=== PATIENT | female | born 1945 | race Two or more races ===

== ENCOUNTER 2023-01-10 21:43 | Inpatient (IN) | payer OTHER ==
[~2023-01-10] VITALS: Ht 172.7 cm; Wt 106.5 kg
[2023-01-10 22:00] VITALS: PULSE 63; RESP 20; O2SAT 98
[2023-01-10] MEDS ORDERED: MORPHINE SULFATE 4 MG/ML SYR/VIAL IV ONE (22:30)
[2023-01-10] MEDS ORDERED: ONDANSETRON HCL 4 MG/2 ML VIAL IV ONE (22:30)
[2023-01-10 22:58] LABS: Basophils # (auto) 0 10 ^3/uL (0-0.2); Basophils % (auto) 0.2 % (0.0-2.0); Eosinophils # (auto) 0 10 ^3/uL (0-0.8); Eosinophils % (auto) 0.1 % (0.0-7.0); Hematocrit 43.5 % (36.0-46.0); Hemoglobin 14.4 g/dL (12.2-16.2); Lymphocytes # (auto) 0.9 10 ^3/uL (0.4-5.4); Lymphocytes % (auto) 9.1 % (10.0-50.0); Mean Corpuscular Hemoglobin 29.8 pg (28.0-32.0); Mean Corpuscular Hgb Conc. 33.1 g/dL (32.0-36.0); Monocytes # (auto) 0.5 10 ^3/uL (0-1.3); Monocytes % (auto) 4.6 % (0.0-12.0); Neutrophils # (auto) 8.8 10 ^3/uL (1.6-8.6); Nucleated Red Blood Cells % 0.1 %; Red Blood Cells 4.84 10^6/uL (4.0-5.20); Red Cell Distribution Width 14.5 % (11.8-14.3); White Blood Cell 10.2 10^3/uL (4.4-10.8)
[2023-01-10 23:11] LABS: Alanine Aminotransferase 17 U/L (7-40); Albumin 3.7 g/dL (3.2-4.8); Alkaline Phosphatase 73 U/L (46-116); Anion Gap 11 (5-15); Aspartate Aminotransferase 34 U/L (13-40); BUN/Creatinine Ratio 11.5 (10.0-20.0); Blood Urea Nitrogen 15 mg/dL (9-23); Calcium 9.9 mg/dL (8.7-10.4); Carbon Dioxide 24 mmol/L (20-30); Chloride 101 mmol/L (98-107); Glucose 326 mg/dL (74-106); Lipase 53 U/L (12-53); Magnesium 1.7 mg/dL (1.6-2.6); Potassium 4.1 mmol/L (3.5-5.1); Sodium 136 mmol/L (136-145)
[2023-01-10 23:12] LABS: Bilirubin, Total 0.6 mg/dL (0.2-1.0); INR 1.05 (0.9-1.15); Partial Thromboplastin Time < 20.0 SEC (24.5-34.5); Total Protein 7.8 g/dL (5.7-8.2)
[2023-01-10] MEDS ORDERED: fentaNYL CITRATE 100 MCG/2 ML VL IV ONE (23:15)
[2023-01-10 23:55] LABS: Lactic Acid w/Reflex 3.7 mmol/L (0.4-2.0)
[2023-01-11] MEDS ORDERED: fentaNYL CITRATE 100 MCG/2 ML VL IV ONE (00:45)
[2023-01-11] MEDS ORDERED: ZOFR4T PO (01:42)
[2023-01-11] MEDS ORDERED: diphenhdrAMINE HCL 50 MG/1 ML VL IV ONE (01:45)
[2023-01-11] MEDS ORDERED: DEXTROSE (50%) 50ML SYRG IV PRN ×2 (01:45→14:30)
[2023-01-11] MEDS ORDERED: hydrALAZINE HCL 20 MG/ML VL IV PRN (01:45)
[2023-01-11] MEDS ORDERED: HYDROcodone-ACET 5/325MG TAB PO PRN (01:45)
[2023-01-11] MEDS ORDERED: SODIUM CHLORIDE 0.9% 1,000 ML IV ONE (01:45)
[2023-01-11] MEDS ORDERED: METOCLOPRAMIDE HCL 5MG/ml INJ 2ml VIAL IV ONE (01:45)
[2023-01-11] MEDS ORDERED: ACETAMINOPHEN 325 MG TAB PO PRN (01:45)
[2023-01-11] MEDS ORDERED: SODIUM CHLORIDE 0.9% 500 ML IV ONE (01:45)
[2023-01-11] MEDS ORDERED: LACTATED RINGER'S 2,000 ML IV ONE (01:45)
[2023-01-11] MEDS ORDERED: HYDROmorphone HCL 2 MG/ML VL/or syr IV ONE ×2 (01:45→05:30)
[2023-01-11] MEDS ORDERED: MORPHINE SULFATE INJ 2 MG/ml SYRG IV PRN ×3 (01:45→14:30)
[2023-01-11 03:49] LABS: Lactic Acid w/Reflex 4.6 mmol/L (0.4-2.0)
[2023-01-11] MEDS ORDERED: IOHEXOL 300 MG/ML 100ML BOTTLE IJ ONE (04:49)
[2023-01-11] MEDS ORDERED: hydrALAZINE HCL 20 MG/ML VL IV ONE (05:00)
[2023-01-11] MEDS ORDERED: NITROGLYCERIN 0.4 MG SL TAB SL PRN (05:30)
[2023-01-11 06:42] LABS: Basophils # (auto) 0 10 ^3/uL (0-0.2); Basophils % (auto) 0.2 % (0.0-2.0); Eosinophils # (auto) 0 10 ^3/uL (0-0.8); Hematocrit 42.5 % (36.0-46.0); Hemoglobin 13.9 g/dL (12.2-16.2); Lymphocytes # (auto) 0.7 10 ^3/uL (0.4-5.4); Lymphocytes % (auto) 4.3 % (10.0-50.0); Mean Corpuscular Hemoglobin 29.9 pg (28.0-32.0); Mean Corpuscular Hgb Conc. 32.8 g/dL (32.0-36.0); Mean Corpuscular Volume 91.3 fL (80.0-100.0); Monocytes # (auto) 0.8 10 ^3/uL (0-1.3); Monocytes % (auto) 5.1 % (0.0-12.0); Neutrophils # (auto) 13.8 10 ^3/uL (1.6-8.6); Neutrophils % (auto) 90.4 % (37.0-80.0); Nucleated Red Blood Cells % 0.2 %; Red Blood Cells 4.66 10^6/uL (4.0-5.20); Red Cell Distribution Width 14.3 % (11.8-14.3); White Blood Cell 15.3 10^3/uL (4.4-10.8)
[2023-01-11 07:00] LABS: Alanine Aminotransferase 19 U/L (7-40); Albumin 3.7 g/dL (3.2-4.8); Alkaline Phosphatase 66 U/L (46-116); Anion Gap 13 (5-15); Aspartate Aminotransferase 34 U/L (13-40); BUN/Creatinine Ratio 11.3 (10.0-20.0); Bilirubin, Total 0.5 mg/dL (0.2-1.0); Blood Urea Nitrogen 13 mg/dL (9-23); Calcium 9.3 mg/dL (8.5-10.1); Carbon Dioxide 20 mmol/L (20-30); Chloride 103 mmol/L (98-107); Glucose 338 mg/dL (74-106); Lactic Acid w/Reflex 5.6 mmol/L (0.4-2.0); Potassium 3.9 mmol/L (3.5-5.1); Sodium 136 mmol/L (136-145); Total Protein 7.6 g/dL (5.7-8.2)
[2023-01-11] MEDS: ACCU-CHEK COMFORT CURVE STRIP VI SCH ×4 (07:05→22:00)
[2023-01-11] MEDS: InsuLIN REG 1unit/0.01ml Soln (100units/ml) SC SCH ×4 (07:05→22:33)
[2023-01-11 07:30] VITALS: PULSE 102; RESP 20; O2SAT 100
[2023-01-11] MEDS ORDERED: FAMOTIDINE (10MG/ML) 2ML VL IV SCH (10:00)
[2023-01-11] MEDS ORDERED: PANTOPRAZOLE 40 MG/10 ML VIAL INJ IV ONE (12:00)
[2023-01-11] MEDS: SODIUM CHLORIDE 0.9% 1,000 ML IV SCH ×2 (12:28→22:00)
[2023-01-11] MEDS ORDERED: levoFLOXacin 500MG 100 ML IV ONE (12:30)
[2023-01-11] MEDS ORDERED: cefTRIAXone 1GM/50ML D5W 50 ML IV ONE (12:30)
[2023-01-11] MEDS: ONDANSETRON HCL 4 MG/2 ML VIAL IV PRN ×2 (12:47→16:46)
[2023-01-11 12:55] LABS: Base Excess -1.7 mmol/L (-2.0-2.0)
[2023-01-11] MEDS ORDERED: POLYETHYLENE GLYCOL 17 GM PWDR PO PRN (13:30)
[2023-01-11] MEDS ORDERED: amLODIPine BESYLATE 5 MG TAB PO ONE (14:30)
[2023-01-11] MEDS ORDERED: METOCLOPRAMIDE HCL 5MG/ml INJ 2ml VIAL IV PRN (14:30)
[2023-01-11] MEDS: metroNIDAZOLE 500MG/100ML 100 ML IV SCH ×2 (15:06→22:40)
[2023-01-11] MEDS ORDERED: ENOXAPARIN SOD 40 MG/0.4 ML SYRINGE SC ONE (15:30)
[2023-01-11] MEDS ORDERED: CLOPIDOGREL BISULFATE 75 MG TAB PO ONE (15:30)
[2023-01-11] MEDS ORDERED: ASPirin 81 mg TAB PO ONE (15:30)
[2023-01-11 17:07] LABS: COVID19 ANTIGEN SOFIA FIA NEGATIVE (NEGATIVE); Rapid Influenza A Negative (Negative); Rapid Influenza B Negative (Negative)
[2023-01-11 18:21] VITALS: RESP 18; O2SAT 94
[2023-01-11 19:00] VITALS: PULSE 96
[2023-01-11 20:00] VITALS: PULSE 111; PULSE 96; RESP 18; O2SAT 96
[2023-01-11] MEDS ORDERED: GLIM4TAB42 PO (20:00)
[2023-01-11] MEDS ORDERED: ATOR40TA52 PO (20:00)
[2023-01-11] MEDS ORDERED: METO-289 PO (20:00)
[2023-01-11] MEDS ORDERED: SACU1TAB PO (20:00)
[2023-01-11] MEDS ORDERED: METF-372 PO (20:00)
[2023-01-11] MEDS ORDERED: FUR20T PO (20:37)
[2023-01-11] MEDS ORDERED: APIX5TAB PO (20:37)
[2023-01-11 22:00] VITALS: BP 122/96; PULSE 121; RESP 17; TEMP 98.3; O2SAT 93
[2023-01-11] MEDS: ATORVASTATIN 20 MG TAB PO SCH (22:41)
[2023-01-12] VITALS (7 sets, daily range): BP systolic 137–162; BP diastolic 61–79; PULSE 60–111; RESP 15–21; TEMP 97.9–99.3; O2SAT 92–98
[2023-01-12 04:52] LABS: Basophils # (auto) 0 10 ^3/uL (0-0.2); Basophils % (auto) 0.1 % (0.0-2.0); Eosinophils # (auto) 0 10 ^3/uL (0-0.8); Hematocrit 38.9 % (36.0-46.0); Hemoglobin 12.9 g/dL (12.2-16.2); Lymphocytes # (auto) 0.6 10 ^3/uL (0.4-5.4); Lymphocytes % (auto) 3.4 % (10.0-50.0); Mean Corpuscular Hemoglobin 29.6 pg (28.0-32.0); Mean Corpuscular Hgb Conc. 33.2 g/dL (32.0-36.0); Mean Corpuscular Volume 89.3 fL (80.0-100.0); Monocytes # (auto) 1.5 10 ^3/uL (0-1.3); Monocytes % (auto) 9.1 % (0.0-12.0); Neutrophils # (auto) 14.3 10 ^3/uL (1.6-8.6); Neutrophils % (auto) 87.4 % (37.0-80.0); Red Blood Cells 4.36 10^6/uL (4.0-5.20); Red Cell Distribution Width 14.1 % (11.8-14.3); White Blood Cell 16.4 10^3/uL (4.4-10.8)
[2023-01-12 05:14] LABS: Alanine Aminotransferase 11 U/L (7-40); Albumin 3.1 g/dL (3.2-4.8); Alkaline Phosphatase 54 U/L (46-116); Anion Gap 10 (5-15); Aspartate Aminotransferase 24 U/L (13-40); BUN/Creatinine Ratio 12.1 (10.0-20.0); Bilirubin, Total 0.7 mg/dL (0.2-1.0); Blood Urea Nitrogen 14 mg/dL (9-23); Calcium 8.5 mg/dL (8.7-10.4); Carbon Dioxide 22 mmol/L (20-30); Chloride 106 mmol/L (98-107); Glucose 219 mg/dL (74-106); Magnesium 1.3 mg/dL (1.6-2.6); Potassium 3.5 mmol/L (3.5-5.1); Sodium 138 mmol/L (136-145); Total Protein 6.5 g/dL (5.7-8.2)
[2023-01-12] MEDS: metroNIDAZOLE 500MG/100ML 100 ML IV SCH ×3 (05:50→21:42)
[2023-01-12] MEDS: InsuLIN REG 1unit/0.01ml Soln (100units/ml) SC SCH ×4 (05:55→21:44)
[2023-01-12] MEDS: ACCU-CHEK COMFORT CURVE STRIP VI SCH ×4 (05:56→21:43)
[2023-01-12] MEDS ORDERED: POTASSIUM CHL 20MEQ/100ML 100 ML IV ONE (08:15)
[2023-01-12] MEDS ORDERED: POTASSIUM CHL 20 Meq TABLET PO ONE (09:00)
[2023-01-12] MEDS ORDERED: cefTRIAXone 1GM/50ML D5W 50 ML IV SCH (09:00)
[2023-01-12] MEDS: ASPirin 81 mg TAB PO SCH (09:25)
[2023-01-12] MEDS: amLODIPine BESYLATE 5 MG TAB PO SCH (09:25)
[2023-01-12] MEDS: CLOPIDOGREL BISULFATE 75 MG TAB PO SCH (09:26)
[2023-01-12] MEDS: METOPROLOL SUCCINATE XL 50 MG TAB PO SCH (09:26)
[2023-01-12] MEDS: PANTOPRAZOLE 40 MG/10 ML VIAL INJ IV SCH (09:27)
[2023-01-12] MEDS ORDERED: ENOXAPARIN SOD 40 MG/0.4 ML SYRINGE SC SCH (10:00)
[2023-01-12] MEDS ORDERED: ENOXAPARIN SOD 100 MG/1 ML SYRINGE SC SCH (10:00)
[2023-01-12] MEDS ORDERED: amLODIPine BESYLATE 5 MG TAB PO SCH (10:00)
[2023-01-12] MEDS: SALINE 0.65 % NASAL SPRAY 45ML BOTTLE EACHNOSTRI SCH ×3 (12:00→21:43)
[2023-01-12] MEDS: MAGNESIUM SULFATE 1GM/100ML 100 ML IV SCH ×2 (12:05→15:56)
[2023-01-12 15:58] LABS: Triglycerides 61 mg/dL (< 150)
[2023-01-12 15:59] LABS: LDL Cholesterol 34 mg/dL (< 100)
[2023-01-12 16:00] LABS: Cholesterol 104 mg/dL (< 200); HDL Cholesterol 56 mg/dL (40-59)
[2023-01-12] MEDS: levoFLOXacin 500MG 100 ML IV SCH (17:54)
[2023-01-12] MEDS: ATORVASTATIN 20 MG TAB PO SCH (21:42)
[2023-01-13] MEDS: SALINE 0.65 % NASAL SPRAY 45ML BOTTLE EACHNOSTRI SCH ×4 (00:57→22:00)
[2023-01-13 05:00] VITALS: BP 158/80; PULSE 98; RESP 17; TEMP 97.7; O2SAT 90
[2023-01-13] MEDS: metroNIDAZOLE 500MG/100ML 100 ML IV SCH ×3 (06:03→23:39)
[2023-01-13] MEDS: ACCU-CHEK COMFORT CURVE STRIP VI SCH ×4 (06:15→23:42)
[2023-01-13] MEDS: InsuLIN REG 1unit/0.01ml Soln (100units/ml) SC SCH ×4 (06:16→23:42)
[2023-01-13 06:23] LABS: Basophils # (auto) 0 10 ^3/uL (0-0.2); Basophils % (auto) 0.1 % (0.0-2.0); Eosinophils # (auto) 0 10 ^3/uL (0-0.8); Eosinophils % (auto) 0.1 % (0.0-7.0); Hematocrit 36.5 % (36.0-46.0); Lymphocytes # (auto) 0.8 10 ^3/uL (0.4-5.4); Lymphocytes % (auto) 4.9 % (10.0-50.0); Mean Corpuscular Hemoglobin 29.4 pg (28.0-32.0); Mean Corpuscular Hgb Conc. 32.8 g/dL (32.0-36.0); Mean Corpuscular Volume 89.7 fL (80.0-100.0); Monocytes # (auto) 1.2 10 ^3/uL (0-1.3); Monocytes % (auto) 7.2 % (0.0-12.0); Neutrophils # (auto) 14.1 10 ^3/uL (1.6-8.6); Neutrophils % (auto) 87.7 % (37.0-80.0); Red Blood Cells 4.07 10^6/uL (4.0-5.20); Red Cell Distribution Width 14.4 % (11.8-14.3); White Blood Cell 16.1 10^3/uL (4.4-10.8)
[2023-01-13 06:25] LABS: Anion Gap 8 (5-15); Carbon Dioxide 21 mmol/L (20-30); Chloride 107 mmol/L (98-107); Potassium 3.8 mmol/L (3.5-5.1); Sodium 136 mmol/L (136-145)
[2023-01-13 06:26] LABS: Calcium 8.1 mg/dL (8.5-10.1)
[2023-01-13 06:31] LABS: BUN/Creatinine Ratio 13.1 (10.0-20.0); Blood Urea Nitrogen 13 mg/dL (9-23); Glucose 163 mg/dL (74-106)
[2023-01-13 08:00] VITALS: BP 113/67; PULSE 101; PULSE 82; RESP 18; RESP 20; TEMP 98.3; O2SAT 96
[2023-01-13] MEDS ORDERED: MILK OF MAGNESIA 30ML SUSP PO ONE (08:30)
[2023-01-13] MEDS: levoFLOXacin 500MG 100 ML IV SCH (08:50)
[2023-01-13] MEDS: PANTOPRAZOLE 40 MG/10 ML VIAL INJ IV SCH (08:50)
[2023-01-13] MEDS: CLOPIDOGREL BISULFATE 75 MG TAB PO SCH (08:50)
[2023-01-13] MEDS: METOPROLOL SUCCINATE XL 50 MG TAB PO SCH (08:50)
[2023-01-13] MEDS: ASPirin 81 mg TAB PO SCH (08:51)
[2023-01-13] MEDS: amLODIPine BESYLATE 5 MG TAB PO SCH (08:51)
[2023-01-13 12:00] VITALS: BP_SYST 131; BP_SYST 153; BP_DIAS 62; BP_DIAS 72; PULSE 74; RESP 18; RESP 19; TEMP 98; TEMP 98.1; O2SAT 96
[2023-01-13] MEDS: POLYETHYLENE GLYCOL 17 GM PWDR PO SCH (14:10)
[2023-01-13 16:10] VITALS: BP 129/60; PULSE 80; RESP 19; TEMP 98.7; O2SAT 96
[2023-01-13 16:37] LABS: Urine Bacteria NONE SEEN /hpf (None Seen); Urine Blood 1+ /uL (Negative); Urine Clarity Clear (Clear); Urine Hyaline Cast FEW /lpf (0 - 2); Urine Mucus FEW (None Seen); Urine Protein, UAD 2+ (Negative); Urine Specific Gravity 1.019 (1.001-1.035); Urine Urobilinogen Normal (Negative); Urine WBC 5 /hpf (0 - 5)
[2023-01-13 16:44] LABS: Urine Color Yellow (Yellow)
[2023-01-13 16:52] LABS: Creatinine, Urine 95.04 mg/dL (30.0-125.0)
[2023-01-13 16:55] LABS: Protein, Urine 275.9 mg/dL (0.0-11.9)
[2023-01-13] MEDS: SUCRALFATE 1 GM TAB PO SCH ×2 (17:00→22:00)
[2023-01-13 20:29] VITALS: PULSE 88; RESP 18
[2023-01-13 22:00] VITALS: BP 151/66; PULSE 86; RESP 18; TEMP 97.9; O2SAT 100
[2023-01-13] MEDS ORDERED: PANTOPRAZOLE 40 MG TAB PO SCH (22:00)
[2023-01-13] MEDS: ATORVASTATIN 20 MG TAB PO SCH (22:00)
[2023-01-14] VITALS (8 sets, daily range): BP systolic 135–143; BP diastolic 54–77; PULSE 73–98; RESP 16–20; TEMP 97.5–98.7; O2SAT 93–98
[2023-01-14] MEDS: metroNIDAZOLE 500MG/100ML 100 ML IV SCH ×3 (05:54→21:26)
[2023-01-14] MEDS: SUCRALFATE 1 GM TAB PO SCH ×4 (05:55→21:26)
[2023-01-14] MEDS: ACCU-CHEK COMFORT CURVE STRIP VI SCH ×4 (05:55→21:27)
[2023-01-14] MEDS: SALINE 0.65 % NASAL SPRAY 45ML BOTTLE EACHNOSTRI SCH ×4 (05:55→22:05)
[2023-01-14] MEDS: InsuLIN REG 1unit/0.01ml Soln (100units/ml) SC SCH ×4 (06:24→21:28)
[2023-01-14] MEDS ORDERED: GASTROGRAFIN 120 ML SOL ONE (07:40)
[2023-01-14] MEDS: ASPirin 81 mg TAB PO SCH (10:00)
[2023-01-14] MEDS: CLOPIDOGREL BISULFATE 75 MG TAB PO SCH (10:00)
[2023-01-14] MEDS: levoFLOXacin 500MG 100 ML IV SCH (10:03)
[2023-01-14] MEDS: PANTOPRAZOLE 40 MG/10 ML VIAL INJ IV SCH ×2 (10:03→21:26)
[2023-01-14 11:36] LABS: Alanine Aminotransferase 13 U/L (7-40); Alkaline Phosphatase 70 U/L (46-116); Anion Gap 10 (5-15); Blood Urea Nitrogen 20 mg/dL (9-23); Calcium 8.3 mg/dL (8.5-10.1); Carbon Dioxide 20 mmol/L (20-30); Chloride 108 mmol/L (98-107); Glucose 217 mg/dL (74-106); Potassium 4.2 mmol/L (3.5-5.1); Sodium 138 mmol/L (136-145)
[2023-01-14 11:37] LABS: Albumin 3.2 g/dL (3.2-4.8); Aspartate Aminotransferase 19 U/L (13-40); Bilirubin, Total 0.5 mg/dL (0.2-1.0); Total Protein 6.5 g/dL (5.7-8.2)
[2023-01-14 11:51] LABS: Basophils # (auto) 0 10 ^3/uL (0-0.2); Basophils % (auto) 0.1 % (0.0-2.0); Eosinophils # (auto) 0 10 ^3/uL (0-0.8); Hematocrit 42.5 % (36.0-46.0); Hemoglobin 14.4 g/dL (12.2-16.2); Mean Corpuscular Hemoglobin 29.6 pg (28.0-32.0); Mean Corpuscular Hgb Conc. 33.8 g/dL (32.0-36.0); Mean Corpuscular Volume 87.7 fL (80.0-100.0); Monocytes # (auto) 1.1 10 ^3/uL (0-1.3); Monocytes % (auto) 6.3 % (0.0-12.0); Neutrophils # (auto) 15.2 10 ^3/uL (1.6-8.6); Neutrophils % (auto) 87.6 % (37.0-80.0); Nucleated Red Blood Cells % 0.1 %; Red Blood Cells 4.84 10^6/uL (4.0-5.20); Red Cell Distribution Width 14.6 % (11.8-14.3); White Blood Cell 17.4 10^3/uL (4.4-10.8)
[2023-01-14 13:57] LABS: Platelet Estimate Decreased
[2023-01-14] MEDS: POLYETHYLENE GLYCOL 17 GM PWDR PO SCH (14:00)
[2023-01-14] MEDS: SODIUM CHLORIDE 0.9% 1,000 ML IV SCH (15:00)
[2023-01-14] MEDS: amLODIPine BESYLATE 5 MG TAB PO SCH (18:20)
[2023-01-14] MEDS: METOPROLOL SUCCINATE XL 50 MG TAB PO SCH (18:21)
[2023-01-14] MEDS: ATORVASTATIN 20 MG TAB PO SCH (21:26)
[2023-01-15 05:00] VITALS: BP 124/60; PULSE 74; RESP 16; TEMP 97.8; O2SAT 96
[2023-01-15] MEDS: SALINE 0.65 % NASAL SPRAY 45ML BOTTLE EACHNOSTRI SCH ×2 (05:48→11:54)
[2023-01-15] MEDS: SODIUM CHLORIDE 0.9% 1,000 ML IV SCH (05:48)
[2023-01-15] MEDS: SUCRALFATE 1 GM TAB PO SCH ×2 (05:48→11:48)
[2023-01-15] MEDS: metroNIDAZOLE 500MG/100ML 100 ML IV SCH ×2 (05:48→14:00)
[2023-01-15] MEDS: ACCU-CHEK COMFORT CURVE STRIP VI SCH ×2 (06:00→11:51)
[2023-01-15] MEDS: InsuLIN REG 1unit/0.01ml Soln (100units/ml) SC SCH ×2 (06:08→11:52)
[2023-01-15 06:52] LABS: Chloride 113 mmol/L (98-107); Potassium 3.3 mmol/L (3.5-5.1); Sodium 143 mmol/L (136-145)
[2023-01-15 06:53] LABS: Anion Gap 5 (5-15); Carbon Dioxide 25 mmol/L (20-30)
[2023-01-15 06:54] LABS: Calcium 7.5 mg/dL (8.5-10.1)
[2023-01-15 06:58] LABS: BUN/Creatinine Ratio 23.2 (10.0-20.0); Blood Urea Nitrogen 23 mg/dL (9-23); Glucose 144 mg/dL (74-106)
[2023-01-15] MEDS ORDERED: POTASSIUM CHL 20MEQ/100ML 100 ML IV ONE (07:15)
[2023-01-15 07:51] LABS: Basophils # (auto) 0 10 ^3/uL (0-0.2); Basophils % (auto) 0.1 % (0.0-2.0); Eosinophils # (auto) 0.1 10 ^3/uL (0-0.8); Eosinophils % (auto) 0.5 % (0.0-7.0); Hematocrit 38.8 % (36.0-46.0); Hemoglobin 12.8 g/dL (12.2-16.2); Lymphocytes % (auto) 9.4 % (10.0-50.0); Mean Corpuscular Hemoglobin 29.7 pg (28.0-32.0); Monocytes # (auto) 0.9 10 ^3/uL (0-1.3); Monocytes % (auto) 7.7 % (0.0-12.0); Neutrophils # (auto) 9.1 10 ^3/uL (1.6-8.6); Neutrophils % (auto) 82.3 % (37.0-80.0); Nucleated Red Blood Cells % 0.1 %; Red Blood Cells 4.31 10^6/uL (4.0-5.20); Red Cell Distribution Width 14.1 % (11.8-14.3)
[2023-01-15 08:00] VITALS: PULSE 73; RESP 17
[2023-01-15 08:36] VITALS: BP 91/53; PULSE 68; RESP 20; TEMP 98; O2SAT 94
[2023-01-15] MEDS: ASPirin 81 mg TAB PO SCH (09:44)
[2023-01-15] MEDS: CLOPIDOGREL BISULFATE 75 MG TAB PO SCH (09:44)
[2023-01-15] MEDS: METOPROLOL SUCCINATE XL 50 MG TAB PO SCH (09:50)
[2023-01-15] MEDS: amLODIPine BESYLATE 5 MG TAB PO SCH (09:50)
[2023-01-15] MEDS: PANTOPRAZOLE 40 MG/10 ML VIAL INJ IV SCH (09:50)
[2023-01-15] MEDS: levoFLOXacin 500MG 100 ML IV SCH (09:51)
[2023-01-15] MEDS ORDERED: PANT40TA2 PO (11:10)
[2023-01-15] MEDS ORDERED: LEVO750T40 PO (11:10)
[2023-01-15] MEDS ORDERED: METR-344 PO (11:10)
[2023-01-15 12:50] VITALS: BP 106/55; PULSE 71; RESP 20; TEMP 97.8; O2SAT 98
[2023-01-15 13:38] VITALS: BP 135/93; PULSE 76; RESP 19; TEMP 36.6; O2SAT 96
[2023-01-15] MEDS: POLYETHYLENE GLYCOL 17 GM PWDR PO SCH (14:00)
== END 2023-01-15 14:30 | disposition home or self-care (01) | DRG 74 ==
LOC: ER 21:43 → EDBD 21:43 → TELE 01-11 05:31 → TELE-WESTW 01-11 18:00 → WEST WING 01-12 13:11 → TELE-WESTW 01-13 21:03
PROVIDERS: ADMIT Internal Medicine
DX: E11.43 Type 2 diabetes mellitus with diabetic autonomic (poly)neuropathy (principal); E87.20 Acidosis, unspecified; I13.0 Hypertensive heart and chronic kidney disease with heart failure and stage 1 through stage 4 chronic kidney disease, or unspecified chronic kidney disease; N17.9 Acute kidney failure, unspecified; R65.10 Systemic inflammatory response syndrome (SIRS) of non-infectious origin without acute organ dysfunction; I50.32 Chronic diastolic (congestive) heart failure; K56.600 Partial intestinal obstruction, unspecified as to cause; K29.70 Gastritis, unspecified, without bleeding; K31.84 Gastroparesis; Z20.822 Contact with and (suspected) exposure to COVID-19; E86.0 Dehydration; E11.65 Type 2 diabetes mellitus with hyperglycemia; N18.9 Chronic kidney disease, unspecified; E11.22 Type 2 diabetes mellitus with diabetic chronic kidney disease; I16.0 Hypertensive urgency; R09.02 Hypoxemia; I25.10 Atherosclerotic heart disease of native coronary artery without angina pectoris; M17.0 Bilateral primary osteoarthritis of knee; E66.01 Morbid (severe) obesity due to excess calories; Z98.84 Bariatric surgery status; Z91.148 Patient's other noncompliance with medication regimen for other reason; Z68.36 Body mass index [BMI] 36.0-36.9, adult; I25.2 Old myocardial infarction
CPT/HCPCS: 36415; 36600; 71260; 74018; 74176; 74177; 74250; 80048; 80053; 80061; 81001; 82010; 82570; 82805; 82962; 83036; 83605; 83690; 83735; 83880; 83930; 84156; 84300; 84443; 84484; 85025; 85610; 85730; 87081; 87086; 87426; 87804; 93005; 93306; 96365; 96375; 96376; 97110; 97116; 97163; 97530; C9113; G0378; J1815; J1956; J2405; J3480; J3490

== ENCOUNTER → 2024-01-06 | Outpatient (CLI) | payer OTHER ==
[~2024-01-06] MED LIST: APIX5TAB PO; ATOR40TA52 PO; FURO20TA4 PO; LEVO750T40 PO; METF-372 PO; METO-289 PO; METR-344 PO; PANT40TA2 PO; SACU1TAB PO; ZOFR4T PO
[2024-01-06 09:12] LABS: Urine Bacteria MANY /hpf (None Seen); Urine Blood 2+ /uL (Negative); Urine Clarity Ex.Turbid (Clear); Urine Color Light-Brown (Yellow); Urine Protein, UAD 3+ (Negative); Urine Specific Gravity 1.016 (1.001-1.035); Urine Urobilinogen Normal (Negative); Urine WBC 983 /hpf (0 - 5); Urine WBC Clumps PRESENT /hpf (None Seen)
[2024-01-06 09:42] LABS: Albumin 3.2 g/dL (3.2-4.8); Alkaline Phosphatase 64 U/L (46-116); Anion Gap 7 (5-15); Aspartate Aminotransferase 13 U/L (13-40); BUN/Creatinine Ratio 13.5 (10.0-20.0); Blood Urea Nitrogen 20 mg/dL (9-23); Calcium 9.4 mg/dL (8.7-10.4); Carbon Dioxide 26 mmol/L (20-31); Chloride 110 mmol/L (98-107); Glucose 163 mg/dL (74-106); LDL Cholesterol 81 mg/dL (< 100); Potassium 4.4 mmol/L (3.5-5.1); Sodium 143 mmol/L (136-145); Triglycerides 117 mg/dL (< 150)
[2024-01-06 09:43] LABS: Cholesterol 143 mg/dL (< 200); HDL Cholesterol 46 mg/dL (40-59)
[2024-01-06 09:44] LABS: Bilirubin, Total 0.4 mg/dL (0.2-1.0); Total Protein 6.6 g/dL (5.7-8.2)
[2024-01-06 10:11] LABS: Alanine Aminotransferase 9 U/L (7-40)
== END | disposition home or self-care (01) ==
LOC: LAB 08:37
PROVIDERS: ATTEND Internal Medicine
DX: E11.65 Type 2 diabetes mellitus with hyperglycemia (principal); E78.5 Hyperlipidemia, unspecified; N39.0 Urinary tract infection, site not specified
CPT/HCPCS: 36415; 80053; 80061; 81001; 82043; 83036; 87086